=== PATIENT | female | born 1990 | race Caucasian/White ===

== ENCOUNTER 2017-03-10 16:53 | Emergency (ER) | payer OTHER ==
[~2017-03-10] VITALS: Ht 162.6 cm; Wt 67.6 kg
[2017-03-10 17:10] VITALS: Ht 162.6 cm; Wt 67.6 kg
[2017-03-10] MEDS ORDERED: SOD CHLORIDE 0.9% 1,000 ML IV STA (17:43)
[2017-03-10] MEDS ORDERED: HYDROCODONE/APAP (5/325) TAB PO STA (17:43)
--- NOTE | 2017-03-10 17:43 | ERD ---
ER Documentation Chief Complaint Chief Complaint r/o etopic , red vag bleeding pelvic pain +urine test @ clinic HPI , + UHCG today at PCP. Pt reports vaginal spotting and bleeding started 4 days ago. pt is using tampons, reports pelvic and back pain ROS All systems reviewed and are negative except as per history of present illness. Allergies Allergies: Coded Allergies: No Known Allergy (Unverified , 03/10/17) Physical Exam Vitals Vital Signs Date Time Temp Pulse Resp B/P Pulse Ox O2 Delivery O2 Flow Rate FiO2 03/10/17 17:10 98.7 74 16 140/80 99 Physical Exam Const: Well-nourished well-appearing well-hydrated 27-year-old female obvious discomfort no acute distress Head: Eyes: ENT: Neck: Resp: Cardio: Abd: Abdomen symmetric, pelvic tenderness to palpation, no CVA tenderness Skin: Back: Lumbar back pain palpable no CVA tenderness Ext: No cyanosis, or edema Neur: Awake and alert Psych: Normal Mood and Affect Result Diagram: 03/10/17 7297 Results 24 hrs Laboratory Tests Test 03/10/17 17:50 03/10/17 17:55 Urine Color COLORLESS Urine Clarity CLEAR Urine pH 7.0 Urine Specific [place] 1.003 Urine Ketones TRACEmg/dL Urine Nitrite NEGATIVEmg/dL Urine Bilirubin NEGATIVEmg/dL Urine Urobilinogen NEGATIVEmg/dL Urine Leukocyte Esterase NEGATIVELeu/ul Urine Hemoglobin NEGATIVEmg/dL Urine Glucose NEGATIVEmg/dL Urine Total Protein NEGATIVEmg/dl White Blood Count 5.510^3/ul Red Blood Count 4.0310^6/ul Hemoglobin 12.9g/dl Hematocrit 36.8% Mean Corpuscular Volume 91.3fl Mean Corpuscular Hemoglobin 32.0pg Mean Corpuscular Hemoglobin Concent 35.1g/dl Red Cell Distribution Width 11.0% Platelet Count 49619^3/UL Mean Platelet Volume 10.1fl Neutrophils % 48.9% Lymphocytes % 42.7% Monocytes % 7.1% Eosinophils % 0.7% Basophils % 0.4% Nucleated Red Blood Cells % 0.0/100WBC Neutrophils # 2.710^3/ul Lymphocytes # 2.410^3/ul Monocytes # 0.410^3/ul Eosinophils # 0.010^3/ul Basophils # 0.010^3/ul Nucleated Red Blood Cells # 0.010^3/ul Beta HCG, Quantitative 368.5mIU/ml Current Medications Medications (Trade) Dose Ordered Sig/Kyle Route PRN Reason Start Time Stop Time Status Last Admin Dose Admin Sodium Chloride (NS) 1,000 ml @ 1,000 mls/hr Q1H STAT IV 03/10/17 17:43 03/10/17 18:42 DC 03/10/17 18:00 Acetaminophen/ Hydrocodone Bitart (Burnside (5/325)) 1 tab ONCE STAT PO 03/10/17 17:43 03/10/17 17:46 DC 03/10/17 18:01 Interpretation text CBC shows no evidence of hemorrhage or infection Beta hCG quantitative 368.5mIU/m Rh-P positive Urinalysis negative for evidence of infection Procedures/MDM PROCEDURE: Pelvic ultrasound. CLINICAL INDICATION: Pelvic pain, positive test. TECHNIQUE: Alfaro scale, color doppler, spectral doppler ultrasound of the pelvis was performed with transabdominal and transvaginal transducers. COMPARISON: No prior studies are available for comparison. FINDINGS: Uterus: Position: Anteverted. Normal myometrial echogenicity. Normal appearance of the endometrium. No evidence of intrauterine gestation. Ovaries: Normal appearing right ovary. Normal appearing left ovary. 3.7 x 3.0 x 3.8 cm left adnexal mass. Free fluid: Moderate Measurements: Endometrium (cm): 0.7 Uterus (cm): 8.7 x 3.0 x 4.5 Right ovary (cm): 4.8 x 2.7 x 2.1 Left ovary (cm): 3.8 x 1.8 x 2.8 IMPRESSION: 3.7 x 3.0 x 3.8 cm left adnexal mass a separate from the left ovary which in view of the positive test and lack of intrauterine gestation likely represents a left adnexal ectopic . Moderate free fluid present within the pelvis. Critical results were discussed with Dr. Masters by telephone 03/10/2017 7:26:[address] Hernán Warner Electronically viewed and signed by .Hernán Warner MD, MD on 03/10/2017 19:29 female presents to emergency department for abdominal pain, vaginal spotting and bleeding 4 days, found out that she was today was sent here by her provider. Patient reports pelvic and back pain, emergency room course today includes diagnostic serology, OB ultrasound, and pain control with Burnside. Normal saline-1 L. Patient also reports that she has a tampon in, patient instructed to use the bathroom, remove tampon, patient denies clots, reports dark black blood. Radiology called for preliminary reading, report given to Jeanie. Suspected ectopic . Diagnostic imaging report documents a 3.7 x 3.0 x 3.8 cm left adnexal mass is separate from the left ovary which in view of the positive test and lack of intrauterine gestation likely represents a left adnexal ectopic . There is moderate free fluid within the pelvis. These results were called to who explains with a beta quantitative less than [id number] this could be early , the adnexal mass is too large to make the diagnosis of ectopic , patient will return in 48 hours for repeat ultrasound and beta hCG quantitative. Patient will receive Burnside 5/325, Tylenol 500, teaching provided as to use of narcotics in early . Patient reports that she is still considering options available including termination of . Patient is stable with no new complaints during ER course, clinically there is no current evidence to suggest ovarian torsion, acute abdomen, acute coronary syndromes, pulmonary embolism or any other emergent condition appearing to require further evaluation or hospitalization. Strict return to emergency room precautions advised instructed to return for increased pain, bleeding, or any change from current symptoms. I feel the patient is stable for discharge at this time, return in 48 hours as discussed above. I have discussed results, examination findings, the treatment plan with the patient and family present prior to discharge. Indications for emergent reevaluation, side effects of medication were also discussed. All questions were answered. Patient verbalizes understanding and agrees with plan of care. Departure Diagnosis: Primary Impression: Vaginal bleeding in patient at less than 20 weeks gestation Condition: Good Patient Instructions: Bleeding During Early Additional Instructions: Thank you for for coming to [facility] or your care today. Please ask your nurse or provider if you have questions about your care today and do not leave until all your questions have been answered. Please use any medications given as directed and follow-up with your doctor (or the doctor you were referred to) in the next 2-3 days. If you do not have a primary care doctor you may follow up at the [facility] (listed below). You may also use motrin and tylenol as needed for fever and/or pain unless instructed otherwise by your provider or nurse. Indications for more urgent follow-up have been discussed, but you may return to the Emergency Department at ANY time for any worrisome or worsening symptoms. If you have abdominal pain, please know that no test or exam you received is perfect and you should follow up within 8 hours for continued pain. If you had any imaging studies today, such as an X-Ray or CT Scan, these studies will be reviewed later by a radiologist. You will be called if there are important findings that were not identified today, so make sure the contact information you provided at registration is correct. If you received any narcotic pain control medicine today, such as Vicodin, Morphine or Dilaudid, your coordination and judgment may be affected for a number of hours. Please do not drive or operate heavy machinery, and you may want someone to assist you at home. If you were given a prescription for narcotic medication, be aware that it is very addictive- use sparingly and only if necessary. AIDE ESTRADA Mar 10, 2017 17:43
[2017-03-10 18:16] LABS: BASOPHILS % 0.4 % (0.0-2.0); EOSINOPHILS % 0.7 % (0.0-7.0); HEMATOCRIT 36.8 % (37.0-47.0); HEMOGLOBIN 12.9 g/dl (12.0-16.0); LYMPHOCYTES # 2.4 10^3/ul (0.8-2.9); LYMPHOCYTES % 42.7 % (15.0-51.0); MEAN CORPUSCULAR HGB CONC 35.1 g/dl (32.0-37.0); MEAN CORPUSCULAR VOLUME 91.3 fl (82.0-101.0); MEAN PLATELET VOLUME 10.1 fl (7.4-10.4); MONOCYTE # 0.4 10^3/ul (0.3-0.9); MONOCYTES % 7.1 % (0.0-11.0); NEUTROPHIL # 2.7 10^3/ul (1.6-7.5); NEUTROPHILS % 48.9 % (39.0-77.0); PLATELET COUNT 274 10^3/UL (140-415); RED BLOOD COUNT 4.03 10^6/ul (4.20-5.40); WHITE BLOOD COUNT 5.5 10^3/ul (4.8-10.8)
[2017-03-10 18:42] LABS: ADD UMIC NO; UR ASCORBIC ACID NEGATIVE (NEGATIVE); UR BILIRUBIN (Dip) NEGATIVE (NEGATIVE); UR BLOOD (Dip) NEGATIVE (NEGATIVE); UR CLARITY CLEAR (CLEAR); UR COLOR COLORLESS (YELLOW); UR GLUCOSE (Dip) NEGATIVE (NEGATIVE); UR KETONES (Dip) TRACE mg/dL (NEGATIVE); UR LEUKOCYTE ESTERASE (Dip) NEGATIVE Leu/ul (NEGATIVE); UR NITRITE (Dip) NEGATIVE (NEGATIVE); UR SPECIFIC GRAVITY (Dip) 1.003 (1.003-1.030); UR TOTAL PROTEIN (Dip) NEGATIVE (NEGATIVE); UR UROBILINOGEN (Dip) NEGATIVE (NEGATIVE)
--- NOTE | 2017-03-10 19:30 | RADRPT ---
PROCEDURE: Pelvic ultrasound. CLINICAL INDICATION: Pelvic pain, positive test. TECHNIQUE: Alfaro scale, color doppler, spectral doppler ultrasound of the pelvis was performed with transabdominal and transvaginal transducers. COMPARISON: No prior studies are available for comparison. FINDINGS: Uterus: Position: Anteverted. Normal myometrial echogenicity. Normal appearance of the endometrium. No evidence of intrauterine gestation. Ovaries: Normal appearing right ovary. Normal appearing left ovary. 3.7 x 3.0 x 3.8 cm left adnexal mass. Free fluid: Moderate Measurements: Endometrium (cm): 0.7 Uterus (cm): 8.7 x 3.0 x 4.5 Right ovary (cm): 4.8 x 2.7 x 2.1 Left ovary (cm): 3.8 x 1.8 x 2.8 IMPRESSION: 3.7 x 3.0 x 3.8 cm left adnexal mass a separate from the left ovary which in view of the positive pr egnancy test and lack of intrauterine gestation likely represents a left adnexal ectopic . Moderate free fluid present within the pelvis. Critical results were discussed with Dr. Masters by telephone 03/10/2017 7:26:[address] Hernán goodman RPTAT: AADD .Hernán Warner MD, Date Time Electronically viewed and signed by .Hernán Warner MD, on 03/10/2017 19:29 .B/
[2017-03-10] MEDS ORDERED: HYDR-906 PO (20:02)
[2017-03-10 20:25] VITALS: BP 113/76; PULSE 58; RESP 16; TEMP 98.6
== END 2017-03-10 20:35 | disposition home or self-care (01) ==
LOC: FTE 16:53
DX: O20.9 Hemorrhage in early pregnancy, unspecified (principal); R10.2 Pelvic and perineal pain; Z3A.00 Weeks of gestation of pregnancy not specified
CPT/HCPCS: 36415; 76801; 76817; 81003; 84702; 85025; 86900; 86901; J7030

== ENCOUNTER 2017-03-11 22:32 | Inpatient (IN) | payer MEDICAID, OTHER ==
[~2017-03-11] VITALS: Ht 162.6 cm; Wt 70.0 kg
[~2017-03-11 22:32] MED LIST: HYDR-906 PO
[2017-03-11] MEDS ORDERED: ONDANSETRON 4 MG INJ IV STA (23:41)
[2017-03-11] MEDS ORDERED: HYDROCODONE/APAP (5/325) TAB PO STA (23:41)
[2017-03-11] MEDS ORDERED: SOD CHLORIDE 0.9% 1,000 ML IV STA (23:41)
--- NOTE | 2017-03-11 23:44 | ERD ---
ER Documentation Chief Complaint Chief Complaint Vag bleed, had ectopic and needs to be checked within 48 hours. Abd pain NV HPI 27-year-old female returns to ED as instructed for passable ectopic . pt reports dysuria, difficulty urinating, and tailbone pain, pt continues to have back pain and reports vaginal bleeding with clots , ROS All systems reviewed and are negative except as per history of present illness. Medications Home Meds Active Scripts Hydrocodone/Acetaminophen (Kelley 5-325 Tablet) 1 Each Tablet, 1 TAB PO Q6H Y for PAIN, #10 TAB Prov:NATALIE,AIDE 03/10/17 Allergies Allergies: Coded Allergies: No Known Allergy (Unverified , 03/10/17) PMhx/Soc Medical and Surgical Hx: pt denies Medical Hx, pt denies Surgical Hx Hx Alcohol Use: No Hx Substance Use: No Hx Tobacco Use: No Smoking Status: Never smoker Physical Exam Vitals Vital Signs Date Time Temp Pulse Resp B/P Pulse Ox O2 Delivery O2 Flow Rate FiO2 03/12/17 02:04 98.1 89 19 112/65 100 Room Air 03/11/17 22:51 98.1 67 18 123/64 100 Vitals stable, triage notes reviewed Physical Exam Const: Well-nourished well-hydrated, 27-year-old female obvious discomfort. Head: Eyes: ENT: Neck: Resp: Respirations even, unlabored, no respiratory distress Cardio: Abd: Abdomen soft, distended, generalized lower abdominal tenderness, back pain, Skin: Back: Ext: Neur: Awake and alert Psych: Normal Mood and Affect Result Diagram: 03/12/17 0020 03/12/17 0020 Results 24 hrs Laboratory Tests Test 03/11/17 23:44 03/12/17 00:20 Urine Color STRAW Urine Clarity CLEAR Urine pH 7.0 Urine Specific [place] 1.003 Urine Ketones NEGATIVEmg/dL Urine Nitrite NEGATIVEmg/dL Urine Bilirubin NEGATIVEmg/dL Urine Urobilinogen NEGATIVEmg/dL Urine Leukocyte Esterase NEGATIVELeu/ul Urine Microscopic RBC 0/HPF Urine Microscopic WBC 0/HPF Urine Hemoglobin 3+mg/dL Urine Glucose NEGATIVEmg/dL Urine Total Protein NEGATIVEmg/dl White Blood Count 7.010^3/ul Red Blood Count 3.6810^6/ul Hemoglobin 11.9g/dl Hematocrit 34.0% Mean Corpuscular Volume 92.4fl Mean Corpuscular Hemoglobin 32.3pg Mean Corpuscular Hemoglobin Concent 35.0g/dl Red Cell Distribution Width 11.0% Platelet Count 09520^3/UL Mean Platelet Volume 9.8fl Neutrophils % 54.6% Lymphocytes % 36.3% Monocytes % 6.0% Eosinophils % 2.3% Basophils % 0.4% Nucleated Red Blood Cells % 0.0/100WBC Neutrophils # 3.810^3/ul Lymphocytes # 2.610^3/ul Monocytes # 0.410^3/ul Eosinophils # 0.210^3/ul Basophils # 0.010^3/ul Nucleated Red Blood Cells # 0.010^3/ul Prothrombin Time 12.7Sec Prothrombin Time Ratio 1.0 INR International Normalized Ratio 0.95 Activated Partial Thromboplast Time 33.9Sec Sodium Level 143mmol/L Potassium Level 3.7mmol/L Chloride Level 106mmol/L Carbon Dioxide Level 27mmol/L Anion Gap 14 Blood Urea Nitrogen 7mg/dl Creatinine 0.72mg/dl Glucose Level 91mg/dl Calcium Level 9.1mg/dl Total Bilirubin 0.3mg/dl Direct Bilirubin 0.00mg/dl Indirect Bilirubin 0.3mg/dl Aspartate Amino Transf (AST/SGOT) 27IU/L Alanine Aminotransferase (ALT/SGPT) 29IU/L Alkaline Phosphatase 63IU/L Total Protein 7.6g/dl Albumin 4.3g/dl Globulin 3.30g/dl Albumin/Globulin Ratio 1.30 Beta HCG, Quantitative 441.2mIU/ml Current Medications Medications (Trade) Dose Ordered Sig/Ykle Route PRN Reason Start Time Stop Time Status Last Admin Dose Admin Sodium Chloride (NS) 1,000 ml @ 1,000 mls/hr Q1H STAT IV 03/11/17 23:41 03/12/17 00:40 DC 03/12/17 00:26 Acetaminophen/ Hydrocodone Bitart ([place]ley (5/325)) 1 tab ONCE STAT PO 03/11/17 23:41 03/11/17 23:44 DC 03/12/17 00:28 Ondansetron HCl (Zofran Inj) 4 mg ONCE STAT IV 03/11/17 23:41 03/11/17 23:44 DC 03/12/17 00:28 Hydromorphone HCl (Dilaudid) 0.5 mg ONCE STAT IV 03/12/17 00:22 03/12/17 00:25 DC 03/12/17 00:29 Hydromorphone HCl 0.5 mg 0.5 mg ONCE ONCE IV 03/12/17 01:33 03/12/17 01:34 DC 03/12/17 02:11 Sodium Chloride (NS) 1,000 ml @ 1,000 mls/hr Q1H ONCE IV 03/12/17 02:00 03/12/17 02:59 DC 03/12/17 02:12 Hydromorphone HCl (Dilaudid (Rec)) 0.2 mg PACU ORDER PRN IV MILD PAIN LEVEL 1-3 03/12/17 03:00 03/12/17 07:00 Hydromorphone HCl (Dilaudid (Rec)) 0.4 mg PACU ORDER PRN IV MODERATE PAIN LEVEL 4-6 03/12/17 03:00 03/12/17 07:00 Hydromorphone HCl (Dilaudid (Rec)) 0.6 mg PACU ORDER PRN IV SEVERE PAIN LEVEL 7-10 03/12/17 03:00 03/12/17 07:00 Fentanyl (Sublimaze) 25 mcg PACU ORDER PRN IV MILD PAIN LEVEL 1-3 03/12/17 03:00 03/12/17 07:00 Fentanyl (Sublimaze) 50 mcg PACU ODER PRN IV MODERATE PAIN LEVEL 4-6 03/12/17 03:00 03/12/17 07:00 Fentanyl (Sublimaze) 75 mcg PACU ORDER PRN IV SEVERE PAIN LEVEL 7-10 03/12/17 03:00 03/12/17 07:00 Oxycodone/ Acetaminophen (Percocet (5/ 325)) 1 tab PACU ORDER PRN PO PAIN LEVEL 1-5 03/12/17 03:00 03/12/17 07:00 Oxycodone/ Acetaminophen (Percocet (5/ 325)) 2 tab PACU ORDER PRN PO PAIN LEVEL 6-10 03/12/17 03:00 03/12/17 07:00 Ondansetron HCl (Zofran Inj) 4 mg PACU ORDER PRN IV NAUSEA AND/OR VOMITING 03/12/17 03:00 03/12/17 07:00 Trimethobenzamide HCl (Tigan) 200 mg PACU ORDER PRN IM NAUSEA AND/OR VOMITING 03/12/17 03:00 03/12/17 07:00 Labetalol HCl (Labetalol) 5 mg PACU ORDER PRN IV HIGH BLOOD PRESSURE 03/12/17 03:00 03/12/17 07:00 Hydralazine HCl (Apresoline) 5 mg PACU ORDER PRN IV HIGH BLOOD PRESSURE 03/12/17 03:00 03/12/17 07:00 Ephedrine Sulfate 5 mg PACU ORDER PRN IV MAP LESS THAN 60 03/12/17 03:00 03/12/17 07:00 Albuterol (Proventil 0.083% (Neb)) 2.5 mg PACU ORDER PRN HHN WHEEZING 03/12/17 03:00 03/12/17 07:00 Ipratropium [place] (Atrovent 0.02% (Neb)) 0.5 mg PACU ORDER PRN HHN WHEEZING 03/12/17 03:00 03/12/17 07:00 Meperidine HCl (Demerol) 25 mg PACU ORDER PRN IV POST-OP RIGORS 03/12/17 03:00 03/12/17 07:00 Diphenhydramine HCl (Benadryl) 25 mg PACU ORDER PRN IV PRURITUS 03/12/17 03:00 03/12/17 07:00 Midazolam HCl (Versed) 0.5 mg PACU ORDER PRN IV ANXIETY 03/12/17 03:00 03/12/17 07:00 Interpretation text CBC shows no evidence of hemorrhage or infection Beta quantitative hCG increased from yesterday to 441 Urinalysis negative for evidence of urinary tract infection Procedures/MDM PROCEDURE: Obstetrical ultrasound. CLINICAL INDICATION: Vaginal bleeding. TECHNIQUE: Multiple sonographic images of the pelvis were obtained utilizing a transabdominal and endovaginal technique. The images were reviewed on a PACS workstation. COMPARISON: 03/10/2017. FINDINGS: The uterus is visualized and measures 7.8 x 2.6 x 4.1 cm. No abnormal uterine mass is identified. The endometrial echo complex is homogeneous and measures 3.2 mm. No intrauterine is identified. There is moderate pelvic free fluid with heterogeneous material suggestive of blood and blood clots. The right ovary has a normal echotexture and measures 3.5 x 1.5 x 2.4 cm. The left ovary has a normal echotexture and measures 3.7 x 2.0 x 2.4 cm. There is normal flow to both ovaries. No adnexal masses are identified. IMPRESSION: Moderate pelvic free fluid with heterogeneous material suggestive of blood and blood clots, suspicious for ruptured ectopic. This is unchanged from the prior study. Left adnexal mass described on the prior study is no longer visualized and probably obscured by blood clots. No intrauterine identified. A call report was made to Aide Zaragoza at 01:10 a.m. Electronically viewed and signed by .Jhonathan Pelayo MD, MD on 03/12/2017 01:15 This 27-year-old female presents to emergency department for reevaluation of abdominal pain suspected ectopic , patient was actually seen by myself yesterday, after speaking with on-call laborist yesterday patient was discharged home with instructions to return in 48 hours for repeat testing, and strict return to emergency department guidelines. Patient reports pain 2 hours prior to arrival to emergency department, vaginal bleeding, and vaginal bleeding and urinary retention. Patient emergency room course includes diagnostic laboratory testing and repeat ultrasound, I have been called by donor center technician that findings are suspicious of a ruptured ectopic , with radiologist's interpretation of no intrauterine moderate pelvic free fluid with heterogeneous material suggestive of blood and blood clots, suspicious for ruptured ectopic. This is documented as unchanged from the prior study. Left adnexal mass described on the prior study is no longer visualized and probably obscured by blood clots. Patient receives normal saline and Dilaudid for pain control, Diaz catheter placed to gravity drainage. On-call labor is , report given, physician comes to emergency department to evaluate patient decides to take to emergency surgery for suspected ruptured ectopic . 220 PACU calls, report given by myself, 2:30 AM PACU takes patient from emergency department to surgery. Care turned over to at this time. This case was also discussed with supervising physician Dr. Hartman Departure Diagnosis: Primary Impression: Ruptured ectopic AIDE ZARAGOZA Mar 11, 2017 23:44
[2017-03-12] VITALS (29 sets, daily range): BP systolic 90–118; BP diastolic 51–74; PULSE 56–110; RESP 16–39; TEMP 98.1; Ht 162.6 cm; Wt 70.0 kg
[2017-03-12] MEDS ORDERED: HYDROmorphONE 0.5 MG/0.5 ML SYG IV STA (00:22)
[2017-03-12 00:26] LABS: ADD UMIC YES; UR ASCORBIC ACID NEGATIVE (NEGATIVE); UR BILIRUBIN (Dip) NEGATIVE (NEGATIVE); UR BLOOD (Dip) 3+ mg/dL (NEGATIVE); UR CLARITY CLEAR (CLEAR); UR COLOR STRAW (YELLOW); UR GLUCOSE (Dip) NEGATIVE (NEGATIVE); UR KETONES (Dip) NEGATIVE (NEGATIVE); UR LEUKOCYTE ESTERASE (Dip) NEGATIVE Leu/ul (NEGATIVE); UR NITRITE (Dip) NEGATIVE (NEGATIVE); UR RBC 0 /HPF (0-5); UR SPECIFIC GRAVITY (Dip) 1.003 (1.003-1.030); UR TOTAL PROTEIN (Dip) NEGATIVE (NEGATIVE); UR UROBILINOGEN (Dip) NEGATIVE (NEGATIVE)
[2017-03-12 00:42] LABS: BASOPHILS % 0.4 % (0.0-2.0); EOSINOPHILS # 0.2 10^3/ul (0.0-0.5); EOSINOPHILS % 2.3 % (0.0-7.0); HEMOGLOBIN 11.9 g/dl (12.0-16.0); LYMPHOCYTES # 2.6 10^3/ul (0.8-2.9); LYMPHOCYTES % 36.3 % (15.0-51.0); MEAN CORPUSCULAR HEMOGLOBIN 32.3 pg (29.0-33.0); MEAN CORPUSCULAR VOLUME 92.4 fl (82.0-101.0); MEAN PLATELET VOLUME 9.8 fl (7.4-10.4); MONOCYTE # 0.4 10^3/ul (0.3-0.9); NEUTROPHIL # 3.8 10^3/ul (1.6-7.5); NEUTROPHILS % 54.6 % (39.0-77.0); PLATELET COUNT 241 10^3/UL (140-415); RED BLOOD COUNT 3.68 10^6/ul (4.20-5.40)
--- NOTE | 2017-03-12 01:15 | RADRPT ---
PROCEDURE: Obstetrical ultrasound. CLINICAL INDICATION: Vaginal bleeding. TECHNIQUE: Multiple sonographic images of the pelvis were obtained utilizing a transabdominal and endovaginal technique. The images were reviewed on a PACS workstation. COMPARISON: 03/10/2017. FINDINGS: The uterus is visualized and measures 7.8 x 2.6 x 4.1 cm. No abnormal uterine mass is identified. T he endometrial echo complex is homogeneous and measures 3.2 mm. No intrauterine is identif ied. There is moderate pelvic free fluid with heterogeneous material suggestive of blood and blood clots. The right ovary has a normal echotexture and measures 3.5 x 1.5 x 2.4 cm. The left ovary has a no rmal echotexture and measures 3.7 x 2.0 x 2.4 cm. There is normal flow to both ovaries. No adnexal masses are identified. IMPRESSION: Moderate pelvic free fluid with heterogeneous material suggestive of blood and blood clots, suspicio us for ruptured ectopic. This is unchanged from the prior study. Left adnexal mass described on the prior study is no longer visualized and probably obscured by bloo d clots. No intrauterine identified. A call report was made to Cass Zaragoza at 01:10 a.m. .Jhonathan Pelayo MD, MD Date Time Electronically viewed and signed by .Jhonathan Pelayo MD, MD on 03/12/2017 01:15 .T/
[2017-03-12] MEDS ORDERED: HYDROmorphONE 0.5 MG/0.5 ML SYG IV ONE (01:33)
[2017-03-12] MEDS ORDERED: SOD CHLORIDE 0.9% 1,000 ML IV ONE (02:00)
[2017-03-12] MEDS ORDERED: CEFAZOLIN 1 GM INJ ONE (02:42)
[2017-03-12] MEDS ORDERED: NEOSTIGMINE 3 MG/3 ML SYRINGE ONE (02:42)
[2017-03-12] MEDS ORDERED: MIDAZOLAM 1 MG/ML 2 ML INJ ONE (02:42)
[2017-03-12] MEDS ORDERED: PROPOFOL 20 ML ONE (02:42)
[2017-03-12] MEDS ORDERED: ONDANSETRON 4 MG INJ ONE (02:42)
[2017-03-12] MEDS ORDERED: ROCURONIUM 50 MG INJ ONE (02:42)
[2017-03-12] MEDS ORDERED: DEXAMETHASONE 4 MG/ML 1 ML INJ ONE (02:42)
[2017-03-12] MEDS ORDERED: FENTAnyl 50 MCG/ML VIAL ONE ×2 (02:42→03:09)
[2017-03-12] MEDS ORDERED: GLYCOPYRROLATE 0.4 MG INJ ONE (02:42)
--- NOTE | 2017-03-12 02:43 | PREOPHP ---
DATE OF ADMISSION: 03/11/2017 HISTORY OF PRESENT ILLNESS: A 27-year-old female, 2, para 0, AB 1, last menstrual period th e first week of January, presented to the emergency department with complaint of pelvic pain and vag inal bleeding. PAST MEDICAL HISTORY: Unremarkable. PAST SURGICAL HISTORY: Appendectomy. ALLERGIES: NO KNOWN DRUG ALLERGIES. FAMILY HISTORY: Noncontributory. PHYSICAL EXAMINATION: VITAL SIGNS: Patient is afebrile. Vital signs stable. HEAD, NECK AND CHEST: Within normal limits. ABDOMEN: Soft, nontender, nondistended, there is generalized tenderness and rebound tenderness. PELVIC: Cervix is closed. EXTREMITIES: Within normal limits. NEUROLOGIC: Within normal limits. Workup in the emergency department included of beta hCG of 441.2. Obstetric ultrasound revealed no intrauterine . Moderate pelvic free fluid with heterogeneous material suggestive of blood and blood clots, suspicious for ruptured ectopic . IMPRESSION: Rule out ruptured ectopic . PLAN: Exploratory laparotomy, possible salpingectomy, possible blood transfusion. Risks, benefits and alternatives of the procedure were explained to the patient. The patient said that she understo od and gave informed consent for the procedure. Dictated By: CORINA MTZ/NTS Conf#: [id number] DID#: [id number]
[2017-03-12 02:52] LABS: ALBUMIN 4.3 g/dl (3.3-4.9); ALBUMIN/GLOBULIN RATIO 1.3; BILIRUBIN,INDIRECT 0.3 mg/dl (0-1.1); BILIRUBIN,TOTAL 0.3 mg/dl (0.2-1.3); CALCIUM 9.1 mg/dl (8.4-10.2); CREATININE 0.72 mg/dl (0.44-1.00); POTASSIUM 3.7 mmol/L (3.5-5.1); TOTAL PROTEIN 7.6 g/dl (6.1-8.1)
[2017-03-12] MEDS ORDERED: hydrALAzine 20 MG INJ IV PRN (03:00)
[2017-03-12] MEDS ORDERED: DIPHENHYDRAMINE 50 MG INJ IV PRN ×2 (03:00→04:30)
[2017-03-12] MEDS ORDERED: MEPERIDINE 25 MG INJ IV PRN (03:00)
[2017-03-12] MEDS ORDERED: LABETALOL HCL 20MG INJ IV PRN (03:00)
[2017-03-12] MEDS ORDERED: ALBUTEROL 0.083% (NEB) 2.5 MG/3 ML AMP HHN PRN (03:00)
[2017-03-12] MEDS ORDERED: FENTAnyl 50 MCG/ML VIAL IV PRN ×3 (03:00)
[2017-03-12] MEDS ORDERED: HYDROmorphONE (0.2 MG/ML) 10ML SYG IV PRN ×3 (03:00)
[2017-03-12] MEDS ORDERED: EPHEDrine SULFATE 50 MG/5 ML SYG IV PRN (03:00)
[2017-03-12] MEDS ORDERED: OXYCODONE/ACETAMINOPHEN (5/325) TAB PO PRN ×2 (03:00)
[2017-03-12] MEDS ORDERED: MIDAZOLAM 1 MG/ML 2 ML INJ IV PRN (03:00)
[2017-03-12] MEDS ORDERED: IPRATROPIUM (NEB) 0.5 MG/2.5 ML AMP HHN PRN (03:00)
[2017-03-12] MEDS ORDERED: ONDANSETRON 4 MG INJ IV PRN ×2 (03:00→05:00)
[2017-03-12] MEDS ORDERED: TRIMETHOBENZAMIDE 100 MG/ML VIAL IM PRN (03:00)
[2017-03-12 03:04] LABS: INR 0.95; PARTIAL THROMBOPLASTIN TIME 33.9 Sec (25.0-35.0); PROTIME 12.7 Sec (12.2-14.2)
[2017-03-12] MEDS ORDERED: morphine SULFATE/PF (10 MG/10 ML) INJ ONE (03:09)
[2017-03-12] MEDS ORDERED: METOCLOPRAMIDE 10 MG INJ ONE (03:09)
[2017-03-12] MEDS ORDERED: SUGAMMADEX SODIUM 200 MG/2 ML VIAL IV ONE (04:12)
[2017-03-12] MEDS ORDERED: KETOROLAC 30 MG INJ IV PRN (04:30)
[2017-03-12] MEDS ORDERED: NALBUPHINE HCL (10 MG/1 ML) INJ IV PRN (04:30)
[2017-03-12] MEDS ORDERED: NALOXONE (0.4 MG/ML) INJ IV PRN (04:30)
[2017-03-12] MEDS ORDERED: morphine 4 MG/ML VIAL IV PRN (04:30)
[2017-03-12] MEDS ORDERED: morphine 2 MG INJ IV PRN (04:30)
--- NOTE | 2017-03-12 04:35 | SIPON ---
Date/Time of Note Date/Time of Note DATE: 03/12/17 TIME: 04:32 Operative Report Preoperative Diagnosis R/O ruptured ectopic Postoperative Diagnosis Ruptured ectopic in left Fallopian tube Operation/Procedure Performed Exploratory laparotomy, left salpingectomy Surgeon Corina Ramsey MD ice cream freezer assistant Luigi Lowe MD Anesthesia: general Estimated blood loss: 100 - 150 ml's Transfusion Required none Specimen left Fallopian tube and products of conception Grafts/Implants none Complications none CORINA RAMSEY MD Mar 12, 2017 04:35
[2017-03-12] MEDS: LACTATED RINGER'S 1,000 ML IV SCH ×2 (04:36→14:36)
[2017-03-12] MEDS ORDERED: ACETAMINOPHEN 1000 MG/100 ML IVPB ONE (07:00)
--- NOTE | 2017-03-12 08:49 | OPR ---
DATE OF OPERATION: 03/12/2017 PREOPERATIVE DIAGNOSIS: Rule out ruptured ectopic . POSTOPERATIVE DIAGNOSIS: Ruptured ectopic in left fallopian tube and hemoperitoneum. OPERATION: Exploratory laparotomy, left salpingectomy. SURGEON: Corina Ferris MD. PLUMBER'S ASSISTANT: Luigi Lowe MD ANESTHESIA: General. ANESTHESIOLOGIST: Dr. Cole. PROCEDURE: The patient was taken to the operating room and placed on the operating table in supine position. After adequate general anesthesia was given, the area was prepared and draped in the usua l sterile fashion. Using a scalpel, Pfannenstiel incision was made about 2 fingerbreadths above the symphysis pubis. The incision was carried to the fascia. The fascia was incised and extended bila terally with Bovie. Two Ruddy's were used to separate the fascia from the muscle. The muscle was dissected in midline down to peritoneum. The peritoneum was secured with 2 Kellys and incised with Metzenbaum scissors. Upon entering the peritoneal cavity, hemoperitoneum was noted. About 100 mL o f blood was removed from the peritoneal cavity. Upon exploring the pelvic area, it was noted that t he left fallopian tube had an ectopic that had ruptured. Since the left fallopian tube ap peared to be damaged, the decision was made to go on with salpingectomy. The left fallopian tube wa s grasped with a Coleharbor clamp. Using 0 chromic, left fallopian tube was doubly ligated. Using Met zenbaum scissors, a portion of the left fallopian tube above the ligated area was excised and sent t o pathology. The left ovary and right ovary appeared to be normal. The right fallopian tube had ad hesions. After assuring hemostasis, the peritoneum was closed with 0 chromic continuous. Fascia wa s closed with 0 Vicryl continuous. Subcutaneous tissue was reapproximated with 2-0 plain. The skin was closed with ariana. ESTIMATED BLOOD LOSS: 100 mL. COUNTS: All counts were correct. Dictated By: CORINA MTZ/NTS Conf#: [id number] DID#: [id number]
--- NOTE | 2017-03-12 16:51 | PN ---
Date/Time of Note Date/Time of Note DATE: 03/12/17 TIME: 16:48 OB Subjective Subjective Subjective Patient tolerated clear liquid diet. Has not passed flatus yet. Has not been out of the bed yet. Pain well controlled with p.o. pain medication. Denies any complaints. OB Objective Objective Objective GA: Drowsy due to recent pain medication Abdomen: Soft, appropriate tenderness around the incision. Incision: Clean dry and intact Bowel sounds hypoactive Extremities: SCDs bilaterally in appropriate place.. Diaz draining clear yellow urine Lungs: Clear to auscultation bilaterally CV: RRR Hematology - 72 Hrs Test 03/12/17 00:20 White Blood Count 7.010^3/ul (4.8-10.8) # Red Blood Count 3.6810^6/ul (4.20-5.40) L Hemoglobin 11.9g/dl (12.0-16.0) L Hematocrit 34.0% (37.0-47.0) L Mean Corpuscular Volume 92.4fl (82.0-101.0) Mean Corpuscular Hemoglobin 32.3pg (29.0-33.0) Mean Corpuscular Hemoglobin Concent 35.0g/dl (32.0-37.0) Red Cell Distribution Width 11.0% (11.5-14.5) L Platelet Count 65337^3/UL (140-415) Mean Platelet Volume 9.8fl (7.4-10.4) Neutrophils % 54.6% (39.0-77.0) Lymphocytes % 36.3% (15.0-51.0) Monocytes % 6.0% (0.0-11.0) Eosinophils % 2.3% (0.0-7.0) Basophils % 0.4% (0.0-2.0) Nucleated Red Blood Cells % 0.0/100WBC (0.0-0.0) Neutrophils # 3.810^3/ul (1.6-7.5) Lymphocytes # 2.610^3/ul (0.8-2.9) Monocytes # 0.410^3/ul (0.3-0.9) Eosinophils # 0.210^3/ul (0.0-0.5) Basophils # 0.010^3/ul (0.0-0.1) Nucleated Red Blood Cells # 0.010^3/ul (0.0-0.0) Chemistry Test 03/12/17 00:20 Sodium Level 143mmol/L (135-144) Potassium Level 3.7mmol/L (3.5-5.1) Chloride Level 106mmol/L (97-110) Carbon Dioxide Level 27mmol/L (21-31) Anion Gap 14 (8-16) Blood Urea Nitrogen 7mg/dl (7-20) Creatinine 0.72mg/dl (0.44-1.00) Glucose Level 91mg/dl (70-220) Calcium Level 9.1mg/dl (8.4-10.2) Total Bilirubin 0.3mg/dl (0.2-1.3) Direct Bilirubin 0.00mg/dl (0.00-0.20) Indirect Bilirubin 0.3mg/dl (0-1.1) Aspartate Amino Transf (AST/SGOT) 27IU/L (15-46) Alanine Aminotransferase (ALT/SGPT) 29IU/L (13-69) Alkaline Phosphatase 63IU/L (42-121) Total Protein 7.6g/dl (6.1-8.1) Albumin 4.3g/dl (3.3-4.9) Globulin 3.30g/dl (1.3-3.2) H Albumin/Globulin Ratio 1.30 Beta HCG, Quantitative 441.2mIU/ml OB Assessment/Plan Other Assessment: Postoperative day #0 Status post mini laparotomy for ectopic Status post USO Doing well Continue routine postop care Remove Diaz after 24 hours. Patient has Duramorph Advance diet Ambulation after Diaz removal DVT prophylaxis with SCDs Routine postop care JOHNIE MALCOLM MD Mar 12, 2017 16:51
[2017-03-12] MEDS: OXYCODONE/ACETAMINOPHEN (5/325) TAB PO PRN (20:37)
[2017-03-13] MEDS: LACTATED RINGER'S 1,000 ML IV SCH (00:36)
[2017-03-13] MEDS ORDERED: KETOROLAC 30 MG INJ IV PRN (03:20)
[2017-03-13] MEDS ORDERED: DIPHENHYDRAMINE 50 MG INJ IV PRN (03:20)
[2017-03-13 04:00] VITALS: BP 105/60; PULSE 65; RESP 17
[2017-03-13] MEDS: OXYCODONE/ACETAMINOPHEN (5/325) TAB PO PRN ×2 (04:46→10:38)
[2017-03-13 05:25] LABS: BASOPHILS % 0.2 % (0.0-2.0); EOSINOPHILS # 0.2 10^3/ul (0.0-0.5); EOSINOPHILS % 3.4 % (0.0-7.0); HEMATOCRIT 28.9 % (37.0-47.0); HEMOGLOBIN 9.9 g/dl (12.0-16.0); LYMPHOCYTES # 1.7 10^3/ul (0.8-2.9); LYMPHOCYTES % 34.5 % (15.0-51.0); MEAN CORPUSCULAR HEMOGLOBIN 32.4 pg (29.0-33.0); MEAN CORPUSCULAR HGB CONC 34.3 g/dl (32.0-37.0); MEAN CORPUSCULAR VOLUME 94.4 fl (82.0-101.0); MEAN PLATELET VOLUME 10.3 fl (7.4-10.4); MONOCYTE # 0.6 10^3/ul (0.3-0.9); MONOCYTES % 11.1 % (0.0-11.0); NEUTROPHIL # 2.6 10^3/ul (1.6-7.5); NEUTROPHILS % 50.8 % (39.0-77.0); PLATELET COUNT 196 10^3/UL (140-415); RED BLOOD COUNT 3.06 10^6/ul (4.20-5.40); RED CELL DISTRIBUTION WIDTH 11.1 % (11.5-14.5); WHITE BLOOD COUNT 5.1 10^3/ul (4.8-10.8)
[2017-03-13 07:40] VITALS: BP 94/55; RESP 19
--- NOTE | 2017-03-13 10:14 | DS ---
Date/Time of Note Date/Time of Note DATE: 03/13/17 TIME: 10:09 Discharge Summary Admission/Discharge Info Admit Date/Time Mar 12, 2017 at 04:40 Discharge Date/Time Mar 13, 2017 Discharge Diagnosis Ruptured ectopic Patient Condition: Stable Procedures Exploratory laparotomy Left salpingectomy Hospital Course Patient underwent exploratory laparotomy and left salpingectomy. Patient's operation was uncomplicated. Patient's post-op course uneventful. Patient has had adequate bladder and bowel function. Home Meds Active Scripts Hydrocodone/Acetaminophen ([place] 5-325 Tablet) 1 Each Tablet, 1 TAB PO Q6H Y for PAIN, #10 TAB Prov:NATALIE,AIDE 03/10/17 Follow-up Plan In one week. Primary Care Provider Care Physician No Primary Time spent on discharge: < 30 minutes Pending Labs Laboratory Tests Test 03/13/17 04:36 White Blood Count 5.110^3/ul (4.8-10.8) Red Blood Count 3.0610^6/ul (4.20-5.40) Hemoglobin 9.9g/dl (12.0-16.0) Hematocrit 28.9% (37.0-47.0) Mean Corpuscular Volume 94.4fl (82.0-101.0) Mean Corpuscular Hemoglobin 32.4pg (29.0-33.0) Mean Corpuscular Hemoglobin Concent 34.3g/dl (32.0-37.0) Red Cell Distribution Width 11.1% (11.5-14.5) Platelet Count 33646^3/UL (140-415) Mean Platelet Volume 10.3fl (7.4-10.4) Neutrophils % 50.8% (39.0-77.0) Lymphocytes % 34.5% (15.0-51.0) Monocytes % 11.1% (0.0-11.0) Eosinophils % 3.4% (0.0-7.0) Basophils % 0.2% (0.0-2.0) Nucleated Red Blood Cells % 0.0/100WBC (0.0-0.0) Neutrophils # 2.610^3/ul (1.6-7.5) Lymphocytes # 1.710^3/ul (0.8-2.9) Monocytes # 0.610^3/ul (0.3-0.9) Eosinophils # 0.210^3/ul (0.0-0.5) Basophils # 0.010^3/ul (0.0-0.1) Nucleated Red Blood Cells # 0.010^3/ul (0.0-0.0) CORINA RAMSEY MD Mar 13, 2017 10:14
== END 2017-03-13 11:25 | disposition home or self-care (01) | DRG 777 ==
LOC: FTE 22:32 → SUR 03-12 02:30 → SDS 03-12 02:30 → SUR 03-12 04:03 → MS1 03-12 04:40 → SUR 03-12 19:51
PROVIDERS: ADMIT Obstetrics & Gynecology; ATTEND Obstetrics & Gynecology
PROC: 10T24ZZ Resection of Products of Conception, Ectopic, Percutaneous Endoscopic Approach (ICD-10-PCS; 2017-03-12)
PROC: 0UB64ZZ Excision of Left Fallopian Tube, Percutaneous Endoscopic Approach (ICD-10-PCS; 2017-03-12)
PROC: 0WJJ0ZZ Inspection of Pelvic Cavity, Open Approach (ICD-10-PCS; principal; 2017-03-12 03:00)
DX: O00.102 Left tubal pregnancy without intrauterine pregnancy (principal); O46.90 Antepartum hemorrhage, unspecified, unspecified trimester; Z3A.00 Weeks of gestation of pregnancy not specified
CPT/HCPCS: 76801; 76817; 80053; 81001; 84702; 85025; 85610; 85730; 86850; 86900; 86901; 86920; 88305; J0131; J0690; J1100; J1170; J1200; J1885; J2250; J2270; J2274; J2405; J2710; J2765; J3010; J7030; J7120